=== PATIENT | male | born 2005 | race Caucasian/White ===

== ENCOUNTER 2024-05-15 10:52 | Outpatient (AMB) | payer OTHER, SELFPAY ==
--- NOTE | 2024-05-15 10:55 | A.OFFPC_ITS ---
Vital Signs 05/15/24 11:07 Height 5 ft 7 in Weight 221 lb BMI 34.6 BP 118/60 Blood Pressure Location Lt brachial Position Sitting Pulse 89 Pulse Source Pulse Oximeter Temp 98.3 F Temp Source Oral Pulse Oximetry (%) 97 Oxygen Delivery Method Room Air Intake Visit Reasons: Establish Care Intake Note: pt here to establish care. c/o of needing medication for his cholesterol. Radiation Oncology Nurse Required: No Accompanied by: Mother Allergies No Known Allergies Allergy (Verified 05/15/24 10:59) Medication List - Last Reconciled 05/15/24 by Ida Skinner MD aripiprazole 15 mg PO DAILY hydroxyzine HCl 10 - 20 mg PO BID PRN melatonin 5 mg PO BEDTIME Tobacco use date assessed: 05/15/24 Dental Screening Dental Screen Date: 05/15/24 Did you have a dental visit in the last 12 months?: Yes Did you have a dental problem in the last 6 months where you did not have access to dental care?: No Was dental information given to patient?: Patient has dentist HPI HPI Comments History of Present Illness Details 19 year old male with a past medical his tory of ADHD, PTSD, anxiety presenting to establish care. Last MD was pediatrics ~3 years ago, Dr Sanchez. Mom accompanies BH: Patient follows with [facility], mostly telehealth. Is stable on abilify, hydroxyzine. Did labs cholesterol was high. Unsure of readings ROS CONSTITUTIONAL: Denies weight loss, fever and chills. HEENT: Denies changes in vision and hearing. RESPIRATORY: Denies SOB and cough. CV: Denies palpitations and CP GI: Denies abdominal pain, nausea, vomiting and diarrhea. : Denies dysuria and urinary frequency. MSK: Denies new myalgia and joint pain. SKIN: Denies rash and pruritus. NEUROLOGICAL: Denies headache PSYCHIATRIC: Denies recent changes in mood. PHYSICAL EXAM: GENERAL: Alert and oriented x 3. NAD EYES: EOMI. Anicteric. HENT: Moist mucous membranes. No scleral icterus. No cervical lymphadenopathy. LUNGS: Clear to auscultation bilaterally. CARDIOVASCULAR: Regular rate and rhythm. No murmur. No JVD. ABDOMEN: Soft, non-tender +bs EXTREMITIES: No edema. Non-tender. SKIN: No rashes or lesions. Warm. NEUROLOGIC: No focal neurological deficits. CN II-XII grossly intact PSYCHIATRIC: Cooperative. Appropriate mood and affect [facility] Medical History (Updated 05/15/24 @ 14:04 by Ida Skinner MD) Anxiety Depression PTSD (post-traumatic stress disorder) ADHD Family History (Updated 05/15/24 @ 11:05 by Carolyn Lopez) Father FH: mental illness Social History Housing: Apartment Alcohol intake: never Patient Tobacco Use Status: Never used Tobacco e-Cigarette/Vaping Use: Currently Using Second Hand Smoke Exposure: Yes Substance Use Type: Marijuana service: No Current occupational status: student Current occupational exposures/hazards: No Cognitive needs: No Hearing needs: No Vision needs: No Questionnaire PHQ-9 Over the last 2 weeks, how often have you been bothered by any of the following problems? 1. Little interest or pleasure in doing things: several days 2. Feeling down, depressed, or hopeless: several days 3. Trouble falling or staying asleep, or sleeping too much: not at all 4. Feeling tired or having little energy: not at all 5. Poor appetite or overeating: nearly every day 6. Feeling bad about yourself - or that you are a failure or have let yourself or your family down: several days 7. Trouble concentrating on things, such as reading the newspaper or watching television: several days 8. Moving or speaking so slowly that other people could have noticed. Or the opposite - being so fidgety or restless that you have been moving around a lot more than usual: more than half the days 9. Thoughts that you would be better off or of hurting yourself in some way: not at all Total score: 9 Depression Screening Interpretation: Positive Depression Screening Follow-up: Community Mental Health Worker F/U Depression Screening Done: Yes 28218 - PHQ-9 Billing: Yes Source: Developed by Drs. Wilberto Rene, Leonora Farias, Jefferson Dyson and colleagues, with an educational blaise from [employer]. Thrive Questionnaire Date Thrive assessed: 05/15/24 I am a: Patient What is your living situation today?: I have a steady place to live Within the past 12 months, did the food you bought not last and you didn't have the money to get more?: Never true Within the past 12 months, did you worry whether your food would run out before you got money to buy more?: Sometimes True Do you have trouble paying for medicines?: No Do you have trouble getting transportation to medical appointments?: Yes Do you have trouble paying your heating and electricity bill?: No Do you have trouble taking care of your child, family member or friend?: No Do you have trouble with day-to-day activities such as bathing, preparing meals, shopping, managing finances, etc.?: No Are you currently unemployed and looking for a job?: Yes Are you interested in more education?: No Please select the resources that you would like help with: None THRIVE Score: 2 AUDIT C Alcohol Use Questionnaire (AUDIT-C) 1. How often do you have a drink containing alcohol?: Never Total Score: 0 DARI-7 AMB Questionnaire DARI-7 Date DARI - 7 assessed: 05/15/24 Feeling nervous, anxious, or on edge: 3 = Nearly every day Not being able to stop or control worryin = More than half the days Worrying too much about different things: 2 = More than half the days Trouble relaxin = Several days Being so restless that it is hard to sit still: 3 = Nearly every day Becoming easily annoyed or irritable: 2 = More than half the days Feeling afraid as if something awful might happen: 2 = More than half the days Total DARI-7 score (0-4 normal; 5-9 mild; 10-14 moderate; 15-21 severe): 15 Source: Developed by Drs. Wilberto Rene, Leonora Farias, Jefferson Dyson and colleagues, with an educational blaise from [employer]. DARI-7 Assessment Billing DARI-7 Assessment Tool: DARI-7 Assessment 15596 ACT Questionnaire In the past 4 weeks, how much of the time did your asthma keep you from getting as much done at work, school or at home?: None of the time During the past 4 weeks, how often have you had shortness of breath?: Not at all During the past 4 weeks, how often did your asthma symptoms wake you up at night or earlier than usual in the morning?: Not at all During the past 4 weeks, how often have you had to use your rescue inhaler or nebulizer medication?: Not at all How would you rate your asthma control during the past 4 weeks?: Well controlled Score: 24 Physical exam (Primary Care) Vital Signs: Last Vital Signs Temp 98.3 F 05/15/24 11:07 Pulse 89 05/15/24 11:07 BP 118/60 05/15/24 11:07 Pulse Ox 97 05/15/24 11:07 Oxygen Delivery Method Room Air 05/15/24 11:07 BMI result Body Mass Index 34.6 Tobacco/Smoking Status: Tobacco use Status Tobacco use date assessed 05/15/24 05/15/24 11:12 Patient Tobacco Use Status Never used Tobacco 05/15/24 11:12 e-Cigarette/Vaping Use Currently Using 05/15/24 11:12 Depression Screening Interpretation: Positive Depression Screening Follow-up: Community Mental Health Worker F/U Assessment and Plan Assessment & Plan (1) Encounter to establish care: Code(s): Z76.89 - Persons encountering health services in other specified circumstances Plan: 19 y/o to establish care. pmh, surgical, social and family history reviewed (2) ADHD: Code(s): F90.9 - Attention-deficit hyperactivity disorder, unspecified type Qualifiers: Attention deficit-hyperactivity disorder type: unspecified Qualified Code(s): F90.9 - Attention-deficit hyperactivity disorder, unspecified type (3) Depression: Code(s): F32.9 - Major depressive disorder, single episode, unspecified Qualifiers: Depression Type: major depressive disorder Active/Remission status: in partial remission Major depression recurrence: recurrent Qualified Code(s): F33.41 - Major depressive disorder, recurrent, in partial remission (4) PTSD (post-traumatic stress disorder): Code(s): F43.10 - Post-traumatic stress disorder, unspecified (5) Hyperlipidemia: Code(s): E78.5 - Hyperlipidemia, unspecified Qualifiers: Hyperlipidemia type: unspecified Qualified Code(s): E78.5 - Hyperlipidemia, unspecified Orders: Orders Hemoglobin A1c Today E66.3 - Overweight, E78.5 - Hyperlipidemia, unspecified, Z13.0 - Encounter for screening for diseases of the blood and blood-forming organs and certain disorders involving the immune mechanism, Z13.228 - Encounter for screening for other metabolic disorders Lipid Panel Today E66.3 - Overweight, E78.5 - Hyperlipidemia, unspecified, Z13.0 - Encounter for screening for diseases of the blood and blood-forming organs and certain disorders involving the immune mechanism, Z13.228 - Encounter for screening for other metabolic disorders Comprehensive Met. Panel Today E66.3 - Overweight, E78.5 - Hyperlipidemia, unspecified, Z13.0 - Encounter for screening for diseases of the blood and blood-forming organs and certain disorders involving the immune mechanism, Z13.228 - Encounter for screening for other metabolic disorders Complete Blood Count Auto Diff Today E66.3 - Overweight, E78.5 - Hyperlip idemia, unspecified, Z13.0 - Encounter for screening for diseases of the blood and blood-forming organs and certain disorders involving the immune mechanism, Z13.228 - Encounter for screening for other metabolic disorders TSH reflex Free T4 Today E66.3 - Overweight, E78.5 - Hyperlipidemia, unspecified, Z13.0 - Encounter for screening for diseases of the blood and blood-forming organs and certain disorders involving the immune mechanism, Z13.228 - Encounter for screening for other metabolic disorders Medications: New metronidazole 0.75% 1 appl topical DAILY 45 grams 2RF Coding Level of Care Code Tele New Pt Level 4 (86798) Diagnoses Encounter to establish care Z76.89 Attention deficit hyperactivity disorder (ADHD), unspecified ADHD type F90.9 Attention deficit-hyperactivity disorder type: unspecified Recurrent major depressive disorder, in partial remission F33.41 Depression Type: major depressive disorder Active/Remission status: in partial remission Major depression recurrence: recurrent PTSD (post-traumatic stress disorder) F43.10 Hyperlipidemia, unspecified hyperlipidemia type E78.5 Hyperlipidemia type: unspecified Additional Codes DARI-7 Assessment Billing - DARI-7 Assessment Tool: DARI-7 Assessment 20204 ([id number])
[2024-05-15 11:07] VITALS: BP 118/60; PULSE 89; TEMP 36.8; O2SAT 97; BMI 34.6
== END 2024-05-15 11:40 | disposition home or self-care (01) ==
PROVIDERS: PCP Internal Medicine; Visit Provider Internal Medicine
DX: E78.5 Hyperlipidemia, unspecified (principal); F33.41 Major depressive disorder, recurrent, in partial remission; Z76.89 Persons encountering health services in other specified circumstances; F90.9 Attention-deficit hyperactivity disorder, unspecified type; F43.10 Post-traumatic stress disorder, unspecified
CPT/HCPCS: 99204

== ENCOUNTER 2024-05-15 12:00 | Outpatient (REF) | payer OTHER, SELFPAY ==
[2024-05-15 14:42] LABS: MANUAL DIFF FLAG NO
[2024-05-15 14:44] LABS: Basophils Percent Auto 0.4 % (0-2); Eosinophils Percent Auto 0.3 % (0-4); Hematocrit 49.9 % (42.0-52.0); Hemoglobin 17.2 g/dl (14.0-18.0); Imm Gran Abs Auto 0.01 X10*3/uL (0.00-0.03); Imm Gran Pct Auto 0.1 % (0.0-0.4); Lymphocytes Absolute Auto 1.7 X10*3/uL (1.2-4.9); Mean Corpuscular HGB Conc 34.5 g/dl (31.0-36.0); Mean Corpuscular Hemoglobin 28.4 pg (27.0-33.0); Mean Corpuscular Volume 82.5 fL (80.0-98.0); Mean Platelet Volume 9.5 fL (9.4-12.4); Monocytes Absolute Auto 0.6 X10*3/uL (0.1-1.2); Monocytes Percent Auto 8.1 % (2-11); Neutrophils Absolute Auto 4.9 x10*3/uL (2.0-8.3); Neutrophils Percent Auto 68.1 % (45-73); Platelet Count 286 X10*3/uL (160-400); Red Blood Count 6.05 X10*6/uL (4.60-5.80); Red Cell Distribution Width 13.4 % (11.0-16.0); White Blood Count 7.2 X10*3/uL (4.8-10.8)
[2024-05-15 14:57] LABS: Estimated Average Glucose 108 mg/dL; Hemoglobin A1c % 5.4 % (<6.0)
[2024-05-15 15:10] LABS: Alanine Aminotransferase 26 U/L (0-40); Albumin Level 4.9 g/dL (3.5-5.0); Alkaline Phosphatase 89 U/L (39-117); Anion Gap 13 (12-20); Aspartate Amino Transferase 20 U/L (5-37); Blood Urea Nitrogen 15 mg/dL (9-16); Calcium 10.5 mg/dL (8.4-10.2); Carbon Dioxide 27 mmol/L (22-29); Chloride 104 mmol/L (96-108); Cholesterol 133 mg/dL (<200); Estimated Glomerular Filt Rate > 60; Glucose Random 91 mg/dL (60-115); HDL Cholesterol 37 mg/dL (>40); LDL Cholesterol Calculated 72 mg/dL (<100); Sodium 140 mmol/L (135-145); Total Protein 8.1 g/dL (6.5-8.0); Triglycerides 122 mg/dL (<150)
[2024-05-15 15:38] LABS: Bilirubin Total 0.6 mg/dL (0.0-1.0)
== END 2024-05-15 12:01 | disposition home or self-care (01) ==
LOC: HO.WFDLDS 12:00
PROVIDERS: Visit Provider Internal Medicine
DX: Z13.0 Encounter for screening for diseases of the blood and blood-forming organs and certain disorders involving the immune mechanism (principal); E78.5 Hyperlipidemia, unspecified; Z13.228 Encounter for screening for other metabolic disorders; E66.3 Overweight
CPT/HCPCS: 36415; 80053; 80061; 83036; 84443; 85025

== ENCOUNTER 2025-11-09 08:01 | Outpatient (AMB) | payer OTHER, SELFPAY ==
--- NOTE | 2025-11-09 08:06 | A.OFFPC_ITS ---
Vital Signs 11/09/25 08:33 11/09/25 08:36 Height 5 ft 7.36 in Weight 240 lb BMI 37.2 BP 126/96 H 122/94 H Blood Pressure Location Lt brachial Lt brachial Position Sitting Sitting Respiration 16 Pulse 110 H Pulse Source Pulse Oximeter Temp 98.1 F Temp Source Oral Pulse Oximetry (%) 96 Oxygen Delivery Method Room Air Intake Visit Reasons: ANNUAL PE Intake Note: Physical Extrusion Die Repairer Required: No Allergies No Known Allergies Allergy (Verified 11/09/25 08:30) Tobacco use date assessed: 11/09/25 Dental Screening Dental Screen Date: 11/09/25 Did you have a dental visit in the last 12 months?: Yes Did you have a dental problem in the last 6 months where you did not have access to dental care?: No Was dental information given to patient?: Patient has dentist HPI HPI Comments History of Present Illness Details 19 year old male with a past medical his tory of ADHD, PTSD, anxiety presenting for CPE Mom accompanies BH: Patient follows with [facility], mostly telehealth. Is stable on abilify, hydroxyzine. Stable Dental UTD Flu shot today ROS CONSTITUTIONAL: Denies weight loss, fever and chills. HEENT: Denies changes in vision and hearing. RESPIRATORY: Denies SOB and cough. CV: Denies palpitations and CP GI: Denies abdominal pain, nausea, vomiting and diarrhea. : Denies dysuria and urinary frequency. MSK: Denies new myalgia and joint pain. SKIN: Denies rash and pruritus. NEUROLOGICAL: Denies headache PSYCHIATRIC: Denies recent changes in mood. PHYSICAL EXAM: GENERAL: Alert and oriented x 3. NAD EYES: EOMI. Anicteric. HENT: Moist mucous membranes. No scleral icterus. No cervical lymphadenopathy. LUNGS: Clear to auscultation bilaterally. CARDIOVASCULAR: Regular rate and rhythm. No murmur. No JVD. ABDOMEN: Soft, non-tender +bs EXTREMITIES: No edema. Non-tender. SKIN: No rashes or lesions. Warm. NEUROLOGIC: No focal neurological deficits. CN II-XII grossly intact PSYCHIATRIC: Cooperative. Appropriate mood and affect [facility] Medical History Anxiety Depression PTSD (post-traumatic stress disorder) ADHD Family History Father FH: mental illness Social History Housing: Apartment Alcohol intake: never Patient Tobacco Use Status: Never used Tobacco e-Cigarette/Vaping Use: Currently Using Frequency of e-Cigarette/Vaping Use: daily Second Hand Smoke Exposure: Yes Use of substances other than those prescribed or required for medical reasons: Yes Substance Use Type: Marijuana service: No Current occupational status: employed Current occupational exposures/hazards: No Cognitive needs: No Hearing needs: No Vision needs: No Questionnaire PHQ-9 Over the last 2 weeks, how often have you been bothered by any of the following problems? 1. Little interest or pleasure in doing things: not at all 2. Feeling down, depressed, or hopeless: not at all 3. Trouble falling or staying asleep, or sleeping too much: several days 4. Feeling tired or having little energy: several days 5. Poor appetite or overeating: more than half the days 6. Feeling bad about yourself - or that you are a failure or have let yourself or your family down: not at all 7. Trouble concentrating on things, such as reading the newspaper or watching television: not at all 8. Moving or speaking so slowly that other people could have noticed. Or the opposite - being so fidgety or restless that you have been moving around a lot more than usual: not at all 9. Thoughts that you would be better off or of hurting yourself in some way: not at all Total score: 4 Depression Screening Interpretation: Negative Depression Screening Done: Yes 81126 - PHQ-9 Billing: Yes Source: Developed by Drs. Wilberto Rene, Leonora Farias, Jefferson Dyson and colleagues, with an educational blaise from [employer]. Thrive Questionnaire Date Thrive assessed: 11/09/25 I am a: Patient What is your living situation today?: I have a steady place to live Within the past 12 months, did the food you bought not last and you didn't have the money to get more?: I choose not to answer this question Within the past 12 months, did you worry whether your food would run out before you got money to buy more?: I choose not to answer this question Do you have trouble paying for medicines?: No Do you have trouble getting transportation to medical appointments?: No Do you have trouble paying your heating and electricity bill?: No Do you have trouble taking care of your child, family member or friend?: No Do you have trouble with day-to-day activities such as bathing, preparing meals, shopping, managing finances, etc.?: No Are you currently unemployed and looking for a job?: I choose not to answer this question Are you interested in more education?: No Please select the resources that you would like help with: None Currently or been in a relationship where the following occur: No concerns reported THRIVE Score: 0 AUDIT C Alcohol Use Questionnaire (AUDIT-C) 1. How often do you have a drink containing alcohol?: Never 3. How often do you have six or more drinks on one occasion?: Never Total Score: 0 DARI-7 AMB Questionnaire DARI-7 Date DARI - 7 assessed: 11/09/25 Feeling nervous, anxious, or on edge: 1 = Several days Not being able to stop or control worryin = Not at all Worrying too much about different things: 0 = Not at all Trouble relaxin = Not at all Being so restless that it is hard to sit still: 0 = Not at all Becoming easily annoyed or irritable: 1 = Several days Feeling afraid as if something awful might happen: 0 = Not at all Total DARI-7 score (0-4 normal; 5-9 mild; 10-14 moderate; 15-21 severe): 2 Source: Developed by Drs. Wilberto Rene, Leonora Farias, Jefferson Dyson and colleagues, with an educational blaise from [employer]. DARI-7 Assessment Billing DARI-7 Assessment Tool: DARI-7 Assessment 12003 Physical exam (Primary Care) Vital Signs: Last Vital Signs Temp 98.1 F 11/09/25 08:33 Pulse 110 H 11/09/25 08:33 Resp 16 11/09/25 08:33 BP 122/94 H 11/09/25 08:36 Pulse Ox 96 11/09/25 08:33 Oxygen Delivery Method Room Air 11/09/25 08:33 BMI result Body Mass Index 37.2 Tobacco/Smoking Status: Tobacco use Status Tobacco use date assessed 11/09/25 11/09/25 08:32 Patient Tobacco Use Status Never used Tobacco 11/09/25 08:39 e-Cigarette/Vaping Use Currently Using 11/09/25 08:39 PHQ-9: PHQ-9 Score PHQ-9: Total score 4 11/09/25 08:40 Depression Screening Interpretation: Negative Thrive Assessment: Date of Thrive Assessment Date Thrive assessed 11/09/25 11/09/25 08:40 Currently or been in a relationship where the following occur: No concerns reported Coding Level of Care Code Est Pt Prev Care 18-39y(31436) Diagnoses Physical exam Z00.00 Attention deficit hyperactivity disorder (ADHD), unspecified ADHD type F90.9 Attention deficit-hyperactivity disorder type: unspecified PTSD (post-traumatic stress disorder) F43.10 Hyperlipidemia, unspecified hyperlipidemia type E78.5 Hyperlipidemia type: unspecified Additional Codes DARI-7 Assessment Billing - DARI-7 Assessment Tool: DARI-7 Assessment 24085 ([id number]) PHQ-9 - 62796 - PHQ-9 Billing: Yes ([id number]) Assessment & Plan Assessment & Plan (1) Physical exam: Code(s): Z00.00 - Encounter for general adult medical examination without abnormal findings (2) ADHD: Code(s): F90.9 - Attention-deficit hyperactivity disorder, unspecified type Category: Medical Qualifiers: Attention deficit-hyperactivity disorder type: unspecified Qualified Code(s): F90.9 - Attention-deficit hyperactivity disorder, unspecified type (3) PTSD (post-traumatic stress disorder): Code(s): F43.10 - Post-traumatic stress disorder, unspecified Category: Medical (4) Hyperlipidemia: Code(s): E78.5 - Hyperlipidemia, unspecified Category: Medical Qualifiers: Hyperlipidemia type: unspecified Qualified Code(s): E78.5 - Hyperl ipidemia, unspecified Plan CPE Interval history reviewed Preventive measures discussed. Flu vaccine today. Labs ordered BH: Stable on current medications HLD: Last lipids wnl. Efforts toward weight loss Orders: Orders Hemoglobin A1c Today E66.3 - Overweight, E78.5 - Hyperlipidemia, unspecified, F90.9 - Attention-deficit hyperactivity disorder, unspecified type, Z13.0 - Encounter for screening for diseases of the blood and blood-forming organs and c ertain disorders involving the immune mechanism Lipid Panel Today E66.3 - Overweight, E78.5 - Hyperlipidemia, unspecified, F90.9 - Attention-deficit hyperactivity disorder, unspecified type, Z13.0 - Encounter for screening for diseases of the blood and blood-forming organs and certain disorders involving the immune mechanism IRON PROFILE Today E66.3 - Overweight, E78.5 - Hyperlipidemia, unspecified, F90.9 - Attention-deficit hyperactivity disorder, unspecified type, Z13.0 - Encounter for screening for diseases of the blood and blood-forming organs and certain disorders involving the immune mechanism Complete Blood Count Auto Diff Today E66.3 - Overweight, E78.5 - Hyperlipidemia, unspecified, F90.9 - Attention-deficit hyperactivity disorder, unspecified type, Z13.0 - Encounter for screening for diseases of the blood and blood-forming organs and certain disorders involving the immune mechanism Comprehensive Met. Panel Today E66.3 - Overweight, E78.5 - Hyperlipidemia, unspecified, F90.9 - Attention-deficit hyperactivity disorder, unspecified type, Z13.0 - Encounter for screening for diseases of the blood and blood-forming organs and certain disorders involving the immune mechanism
--- OUTSIDE RECORDS SUMMARY | 2025-11-09 08:06 | XMS_ITS ---
Author Name [facility] Organization Unknown Care Team Organization Name Specialty Phone Email Start Date End Da te [facility] CIRILO MU[facility]IZ Primary Care 09/29/20222023
--- OUTSIDE RECORDS SUMMARY | 2025-11-09 08:06 | XMS_ITS | Clinical Summary ---
Author Organization [employer] Address [address] [place] [address] Care Team Providers Care Manager [employer] Name Role Phone Unavailable Primary Care Provider Unavailabl e Allergies No known active allergies Medications melatonin tablet TAKE 1 TABLET BY MOUTH EVERY EVENING 1-2 HOURS BEFORE BEDTIME FOR SLEEP 02/05/2023 Active Social History Tobacco Use Types Packs/Day Years Used Date Smoking Tobacco: Some Days Cigarettes Smokeless Tobacco: Never Tobacco Cessation:Ready to Q uit: Not Asked; Counseling Given: Not Answered Sex and Gender Information Value Date Recorded Sex Assigned at Male 09/21/2022 10:29 AM EDT Legal Sex Male 10:29 AM EDT Gender Identity Male 08/31/2023 10:31 AM EDT Sexual Orientation Choose not to disclose 2022 10:31 AM EDT Last Filed Vital Signs Vital Sign Reading Time Taken Comments Blood Pressure 129/82 09/15/2023 1:08 PM EDT Pulse 85 09/15/2023 1:08 PM EDT Temperature - - Respiratory Rate - - Oxygen Saturation - - Inhaled Oxygen Concentration - - Weight - - Height - - Body Mass Index - - Plan of Treatment Health Maintenance Due Date Last Done Comments Chlamydia and Gonorrhea Screening 2004 Depression Screening 2004 HIV Screening 2004 SDOH Screening 2004 Disability Screening 2004 Alcohol/Substance Use Screening 2016 Dental Oral Exam 09/26/2016 03/25/2016 Family Planning (PISQ) 2019 Meningococcal B Vaccine (1 of 2 - Standard) 2020 Hepatitis C Screening 2022 Pneumococcal Vaccine: Pediatrics (0 to 5 Years) and At-Risk Patients (6 to 49) Years (1 of 2 - PCV) 2023 07/02/2005, 2004, 2004, Additional history exists Dental Prophylaxis 03/17/2024 09/15/2023 Tobacco Screening 09/15/2024 09/15/2023 Dental X-Ray: Bitewings 09/16/2024 09/15/2023, 03/25 DTaP/Tdap/Td Vaccines (7 - Td or Tdap) 05/24/2025 05/24/2015, 03/19/2009, 09/02/2005, Additional history exists COVID-19 Vaccine (3 - 2024- season) 2025 09/01/2021, 08/11/2021 Influenza Vaccine (#1) 2025 02/06/2010, 2009 Dental X-Ray: Full Mouth 09/16/2026 09/15/2023 Zoster Vaccines (1 of 2) 2054 RSV Patients and Patients Aged 60 years or older (1 - 1-dose 75+ series) 2079 Hepatitis B Vaccines Completed 2004, 2004, 2004, Additional history exists HIB Vaccines Completed 01/03/2007, 08/22, 2004, Additional history exists IPV Vaccines Completed 07/26/2009, 03/2005, 2004, Additional history exists HPV Vaccines Completed 06/17/2018, 06/16/2017 Meningococcal Vaccine Completed 08/06/2021, 016 Hepatitis A Vaccines Aged Out No long er eligible based on patient's age to complete this topic RSV under 20 months Aged Out No longe r eligible based on patient's age to complete this topic Rotavirus Vaccines Aged Out No longer eligible based on patient's age to complete this topic Procedures Procedure Name Priority Date/Time Associated Diagnosis Comments PROPHYLAXIS - ADULT Routine 09/15/2023 1 :00 PM EDT INTRAORAL - COMPLETE SERIES OF RADIOGRAPHIC IMAGES Routine 09/15/2023 1:00 PM EDT COMPREHENSIVE ORAL EVALUATION - NEW OR ESTABLISHED PATIENT Routine 03/25/2016 12:00 AM EDT from Last 3 Months or Most Recently Relevant to Health Maintenance Insurance [place] [employer] [place]
[2025-11-09 08:33] VITALS: BP 126/96; PULSE 110; RESP 16; TEMP 36.7; O2SAT 96; BMI 37.2
[2025-11-09 08:36] VITALS: BP 122/94
== END 2025-11-09 09:02 | disposition home or self-care (01) ==
LOC: HO.HMCFM 08:02
PROVIDERS: PCP Internal Medicine; Visit Provider Internal Medicine
DX: Z00.00 Encounter for general adult medical examination without abnormal findings (principal); F90.9 Attention-deficit hyperactivity disorder, unspecified type; F43.10 Post-traumatic stress disorder, unspecified; E78.5 Hyperlipidemia, unspecified; Z23 Encounter for immunization

== ENCOUNTER 2025-11-09 08:01 | Outpatient (REF) | payer OTHER, SELFPAY ==
[2025-11-09 12:41] LABS: MANUAL DIFF FLAG NO
[2025-11-09 12:57] LABS: Hematocrit 50.9 % (42.0-52.0); Hemoglobin 16.8 g/dl (14.0-18.0); Imm Gran Abs Auto 0.03 X10*3/uL (0.00-0.03); Imm Gran Pct Auto 0.3 % (0.0-0.4); Lymphocytes Absolute Auto 2.9 X10*3/uL (1.2-4.9); Mean Corpuscular HGB Conc 33.0 g/dl (31.0-36.0); Mean Corpuscular Hemoglobin 27.6 pg (27.0-33.0); Mean Corpuscular Volume 83.7 fL (80.0-98.0); NRBC Abs Auto 0.000 X10*3/uL (0.0-0.012); NRBC Pct Auto 0.0 /100WBC (0.0-0.2); Platelet Count 304 X10*3/uL (160-400); Red Blood Count 6.08 X10*6/uL (4.60-5.80); White Blood Count 10.1 X10*3/uL (4.8-10.8)
[2025-11-09 13:47] LABS: Alanine Aminotransferase 55 U/L (0-40); Albumin Level 5.1 g/dL (3.5-5.0); Alkaline Phosphatase 85 U/L (39-117); Anion Gap 15 (12-20); Aspartate Amino Transferase 45 U/L (5-37); Blood Urea Nitrogen 12 mg/dL (9-16); Calcium 9.9 mg/dL (8.4-10.2); Carbon Dioxide 24 mmol/L (22-29); Chloride 104 mmol/L (96-108); Cholesterol 177 mg/dL (<200); Estimated Glomerular Filt Rate > 60; HDL Cholesterol 38 mg/dL (>40); Iron 138 mcg/dL (45-160); Percent Iron Saturation 36 % (15-50); Potassium 3.8 mmol/L (3.3-5.1); Sodium 139 mmol/L (135-145); Total Iron Binding Capacity 380 mcg/dL (228-428); Total Protein 7.9 g/dL (6.5-8.0); Triglycerides 322 mg/dL (<150); Unsaturated Iron Binding 242 ug/dL
== END 2025-11-09 08:02 | disposition home or self-care (01) ==
LOC: HO.WFDLDS 08:01
PROVIDERS: PCP Internal Medicine; Visit Provider Internal Medicine
DX: Z13.0 Encounter for screening for diseases of the blood and blood-forming organs and certain disorders involving the immune mechanism (principal); E78.5 Hyperlipidemia, unspecified; E66.3 Overweight; F90.9 Attention-deficit hyperactivity disorder, unspecified type
CPT/HCPCS: 36415; 80053; 80061; 83036; 83540; 85025